=== PATIENT | female | born 1940 | race Caucasian/White ===

== ENCOUNTER 2018-12-29 16:51 | Inpatient (IN) | payer OTHER ==
[2018-12-29] MEDS: ONDANSETRON 4 MG INJ IV (17:52)
[2018-12-29] MEDS: morphine 4 MG/ML VIAL IV ×2 (17:52→20:02)
[2018-12-29 21:38] LABS: WHITE BLOOD COUNT 3.4 10^3/ul (4.8-10.8)
[2018-12-29 21:38] LABS: HEMATOCRIT 27.1 % (37.0-47.0); HEMOGLOBIN 8.7 g/dl (12.0-16.0); MEAN CORPUSCULAR HEMOGLOBIN 30.3 pg (29.0-33.0); MEAN CORPUSCULAR HGB CONC 32.1 g/dl (32.0-37.0); MEAN CORPUSCULAR VOLUME 94.4 fl (82.0-101.0); PLATELET COUNT 192 10^3/UL (140-415); RED BLOOD COUNT 2.87 10^6/ul (4.20-5.40); RED CELL DISTRIBUTION WIDTH 16.6 % (11.5-14.5)
[2018-12-29 21:42] LABS: ADD MAN DIFF? YES
[2018-12-29 21:43] LABS: ADD UMIC NO; UR ASCORBIC ACID NEGATIVE (NEGATIVE); UR BILIRUBIN (Dip) NEGATIVE (NEGATIVE); UR BLOOD (Dip) NEGATIVE (NEGATIVE); UR CLARITY CLEAR (CLEAR); UR COLOR YELLOW (YELLOW); UR GLUCOSE (Dip) NEGATIVE (NEGATIVE); UR KETONES (Dip) NEGATIVE (NEGATIVE); UR LEUKOCYTE ESTERASE (Dip) NEGATIVE Leu/ul (NEGATIVE); UR NITRITE (Dip) NEGATIVE (NEGATIVE); UR SPECIFIC GRAVITY (Dip) 1.013 (1.003-1.030); UR TOTAL PROTEIN (Dip) NEGATIVE (NEGATIVE); UR UROBILINOGEN (Dip) NEGATIVE (NEGATIVE)
[2018-12-29 21:55] LABS: ALANINE AMINOTRANSFERASE 26 IU/L (13-69); ALBUMIN 3.8 g/dl (3.3-4.9); ALKALINE PHOSPHATASE 81 IU/L (42-121); ANION GAP 9 (5-13); ASPARTATE AMINO TRANSFERASE 21 IU/L (15-46); BILIRUBIN,INDIRECT 0.2 mg/dl (0-1.1); BILIRUBIN,TOTAL 0.2 mg/dl (0.2-1.3); BLOOD UREA NITROGEN 28 mg/dl (7-20); CALCIUM 8.8 mg/dl (8.4-10.2); CARBON DIOXIDE 26 mmol/L (21-31); CHLORIDE 104 mmol/L (97-110); CREATININE 1.01 mg/dl (0.44-1.00); GLUCOSE 116 mg/dl (70-220); POTASSIUM 4.5 mmol/L (3.5-5.1); SODIUM 139 mmol/L (135-144); TOTAL PROTEIN 6.5 g/dl (6.1-8.1)
[2018-12-29 22:08] LABS: INR 1.04; PROTIME 13.7 Sec (11.9-14.9); PT RATIO 1.1
[2018-12-29 22:09] LABS: PARTIAL THROMBOPLASTIN TIME 26.3 Sec (23.0-35.0)
[2018-12-29 22:28] LABS: BAND NEUTROPHILS #M 0.2 10^3/ul (0.0-0.6); BAND NEUTROPHILS % (M) 7 % (0-4); BASOPHILS % (M) 1 % (0-2); EOSINOPHILS % (M) 2 % (0-7); GIANT THROMBO% (M) 2 % (0-0); LYMPHOCYTES % (M) 31 % (15-51); MONOCYTE #M 0.6 10^3/ul (0.3-0.9); MONOCYTES % (M) 20 % (0-11); PLATELET ESTIMATE NORMAL; SEG NEUT #M 1.3 10^3/ul (1.6-7.5); SEGMENTED NEUTROPHILS (M) % 39 % (39-77); SMUDGE%M 16 % (0-0)
[2018-12-30] MEDS: morphine 4 MG/ML VIAL IV ×2 (01:45→05:49)
[2018-12-30] MEDS ORDERED: ONDANSETRON 4 MG TAB PO (02:00)
[2018-12-30] MEDS ORDERED: NACL 0.9% 3 ML SYG IV (02:00)
[2018-12-30] MEDS ORDERED: DOCUSATE SODIUM 100 MG CAP PO (02:00)
[2018-12-30] MEDS: HYDROCODONE/APAP (5/325) TAB PO ×2 (02:04→02:11)
[2018-12-30] MEDS: D5W-0.45 NACL + KCL 20 MEQ 1,000 ML IV ×2 (04:20→15:08)
[2018-12-30] MEDS: FAMOTIDINE 20 MG TAB PO (04:23)
[2018-12-30] MEDS: HEPARIN 5,000 UNIT/1 ML VIAL SC ×3 (04:31→21:00)
[2018-12-30] MEDS ORDERED: LEVOTHYROXINE 112 MCG TAB (05:56)
[2018-12-30 06:22] LABS: ADD MAN DIFF? NO
[2018-12-30 06:25] LABS: ABNORMAL IP MESSAGE 1; BASOPHILS % 0.4 % (0.0-2.0); EOSINOPHILS # 0.3 10^3/ul (0.0-0.5); EOSINOPHILS % 9.7 % (0.0-7.0); HEMATOCRIT 27.9 % (37.0-47.0); HEMOGLOBIN 8.8 g/dl (12.0-16.0); LYMPHOCYTES # 0.7 10^3/ul (0.8-2.9); LYMPHOCYTES % 27.9 % (15.0-51.0); MEAN CORPUSCULAR HEMOGLOBIN 29.9 pg (29.0-33.0); MEAN CORPUSCULAR HGB CONC 31.5 g/dl (32.0-37.0); MEAN CORPUSCULAR VOLUME 94.9 fl (82.0-101.0); MEAN PLATELET VOLUME 11.3 fl (7.4-10.4); MONOCYTE # 0.8 10^3/ul (0.3-0.9); MONOCYTES % 29.8 % (0.0-11.0); NEUTROPHIL # 0.8 10^3/ul (1.6-7.5); NEUTROPHILS % 32.2 % (39.0-77.0); PLATELET COUNT 204 10^3/UL (140-415); RED BLOOD COUNT 2.94 10^6/ul (4.20-5.40); RED CELL DISTRIBUTION WIDTH 16.7 % (11.5-14.5)
[2018-12-30 06:25] LABS: WHITE BLOOD COUNT 2.6 10^3/ul (4.8-10.8)
[2018-12-30 06:40] LABS: POSITIVE DIFF @See below
[2018-12-30 06:50] LABS: CREATINE KINASE 466 IU/L (23-200)
[2018-12-30 07:03] LABS: ANION GAP 9 (5-13); BLOOD UREA NITROGEN 28 mg/dl (7-20); CALCIUM 8.9 mg/dl (8.4-10.2); CARBON DIOXIDE 28 mmol/L (21-31); CHLORIDE 103 mmol/L (97-110); CK INDEX 0.2; CK-MB 1.09 ng/ml (0.0-2.4); CREATININE 0.97 mg/dl (0.44-1.00); GLUCOSE 112 mg/dl (70-220); POTASSIUM 4.9 mmol/L (3.5-5.1); SODIUM 140 mmol/L (135-144); TROPONIN-I < 0.012 ng/ml (0.000-0.120)
[2018-12-30] MEDS: LEVOTHYROXINE 112 MCG TAB PO (07:03)
[2018-12-30 07:27] LABS: THYROID STIMULATING HORMONE 0.742 MIU/L (0.465-4.680)
[2018-12-30 07:50] LABS: HEMOGLOBIN A1C 5.2 % (0-5.9)
[2018-12-30] MEDS: CHOLECALCIFEROL 1,000 UNIT TAB PO (09:03)
[2018-12-30] MEDS: ASCORBIC ACID 500 MG TAB PO (09:03)
[2018-12-30] MEDS: AMLODIPINE 2.5 MG TAB PO (09:03)
[2018-12-30] MEDS: LOSARTAN 50 MG TAB PO (09:04)
[2018-12-30] MEDS: ISOSORBIDE MONONITRATE(SR)30 MG TAB PO (12:03)
[2018-12-30] MEDS: METOPROLOL (XL) 25 MG TAB PO (12:05)
[2018-12-30 12:08] LABS: CREATINE KINASE 430 IU/L (23-200)
[2018-12-30 12:20] LABS: CK INDEX 0.2; CK-MB 1.02 ng/ml (0.0-2.4); TROPONIN-I < 0.012 ng/ml (0.000-0.120)
[2018-12-30] MEDS ORDERED: LENALIDOMIDE 15 MG PO (21:00)
[2018-12-30] MEDS: ATORVASTATIN 10 MG TAB PO (21:41)
[2018-12-30] MEDS: LORATADINE/PSEUDOEPHED (SR) TAB PO (21:41)
[2018-12-31 00:07] LABS: IMMEDIATE SPIN CROSSMATCH 1 3
[2018-12-31] MEDS: morphine 2 MG INJ IV ×2 (02:12→11:19)
[2018-12-31] MEDS: D5W-0.45 NACL + KCL 20 MEQ 1,000 ML IV ×2 (04:15→12:48)
[2018-12-31 08:00] LABS: ADD MAN DIFF? NO
[2018-12-31 08:03] LABS: WHITE BLOOD COUNT 3.5 10^3/ul (4.8-10.8)
[2018-12-31 08:03] LABS: BASOPHILS % 0.9 % (0.0-2.0); EOSINOPHILS # 0.2 10^3/ul (0.0-0.5); EOSINOPHILS % 6.6 % (0.0-7.0); HEMATOCRIT 34.8 % (37.0-47.0); HEMOGLOBIN 11.2 g/dl (12.0-16.0); LYMPHOCYTES # 1.1 10^3/ul (0.8-2.9); LYMPHOCYTES % 30.3 % (15.0-51.0); MEAN CORPUSCULAR HEMOGLOBIN 30.2 pg (29.0-33.0); MEAN CORPUSCULAR HGB CONC 32.2 g/dl (32.0-37.0); MEAN CORPUSCULAR VOLUME 93.8 fl (82.0-101.0); MONOCYTE # 1.1 10^3/ul (0.3-0.9); MONOCYTES % 31.7 % (0.0-11.0); NEUTROPHIL # 1.1 10^3/ul (1.6-7.5); NEUTROPHILS % 30.2 % (39.0-77.0); PLATELET COUNT 193 10^3/UL (140-415); RED BLOOD COUNT 3.71 10^6/ul (4.20-5.40); RED CELL DISTRIBUTION WIDTH 16.1 % (11.5-14.5)
[2018-12-31] MEDS: LEVOTHYROXINE 112 MCG TAB PO (08:03)
[2018-12-31] MEDS: LOSARTAN 50 MG TAB PO (08:35)
[2018-12-31] MEDS: AMLODIPINE 2.5 MG TAB PO (08:36)
[2018-12-31] MEDS: LORATADINE/PSEUDOEPHED (SR) TAB PO ×2 (08:36→21:00)
[2018-12-31] MEDS: ISOSORBIDE MONONITRATE(SR)30 MG TAB PO (08:37)
[2018-12-31] MEDS: METOPROLOL (XL) 25 MG TAB PO (08:37)
[2018-12-31] MEDS: FAMOTIDINE 20 MG TAB PO (08:38)
[2018-12-31] MEDS: CHOLECALCIFEROL 1,000 UNIT TAB PO (08:38)
[2018-12-31] MEDS: ASCORBIC ACID 500 MG TAB PO (08:38)
[2018-12-31] MEDS: HEPARIN 5,000 UNIT/1 ML VIAL SC ×2 (08:51→21:00)
[2018-12-31] MEDS ORDERED: morphine SULFATE/PF (10 MG/10 ML) INJ (13:54)
[2018-12-31] MEDS ORDERED: FENTAnyl 50 MCG/ML VIAL (13:54)
[2018-12-31] MEDS ORDERED: PROPOFOL 20 ML (13:54)
[2018-12-31] MEDS ORDERED: LIDOCAINE 2% (SDV) 5 ML INJ (13:54)
[2018-12-31] MEDS ORDERED: EPHEDrine 50 MG INJ (14:49)
[2018-12-31] MEDS: POLYMYXIN/BACITRACIN 1L IRRIG (14:59)
[2018-12-31] MEDS ORDERED: SEVOFLURANE 15 MIN (15:00)
[2018-12-31] MEDS ORDERED: FAMOTIDINE 20 MG INJ (15:05)
[2018-12-31] MEDS ORDERED: ONDANSETRON 4 MG INJ (15:05)
[2018-12-31] MEDS ORDERED: DEXAMETHASONE 4 MG/ML 5 ML INJ (15:05)
[2018-12-31] MEDS ORDERED: CEFAZOLIN 1 GM INJ (15:08)
[2018-12-31] MEDS ORDERED: VASOPRESSIN 20 UNITS INJ (15:22)
[2018-12-31] MEDS ORDERED: ONDANSETRON 4 MG INJ IV ×2 (15:30→16:30)
[2018-12-31] MEDS ORDERED: DIPHENHYDRAMINE 50 MG INJ IV (15:30)
[2018-12-31] MEDS ORDERED: FENTAnyl 50 MCG/ML VIAL IV (15:30)
[2018-12-31] MEDS ORDERED: MEPERIDINE 25 MG INJ IV (15:30)
[2018-12-31] MEDS ORDERED: PROCHLORPERAZINE 10 MG INJ IV (15:30)
[2018-12-31] MEDS ORDERED: HYDROmorphONE 1 MG/5 ML IV SYRINGE IV ×3 (15:30→20:55)
[2018-12-31] MEDS: [UNRECOGNIZED DRUG - OTHER] XX (16:00)
[2018-12-31] MEDS ORDERED: NALOXONE (0.4 MG/ML) INJ IV (16:30)
[2018-12-31] MEDS ORDERED: KETOROLAC 15 MG INJ IV (16:30)
[2018-12-31] MEDS ORDERED: NALBUPHINE HCL (10 MG/1 ML) INJ IV (16:30)
[2018-12-31] MEDS ORDERED: HYDROmorphONE 0.5 MG/0.5 ML SYG IV ×2 (16:30)
[2018-12-31] MEDS: VANCOMYCIN 1 GM INJ (19:09)
[2018-12-31] MEDS ORDERED: MIDAZOLAM 1 MG/ML 2 ML INJ (19:44)
[2018-12-31] MEDS: MIDAZOLAM 1 MG/ML 2 ML INJ IV (19:54)
[2018-12-31] MEDS ORDERED: NACL 0.9% 3 ML SYG IV (20:00)
[2018-12-31] MEDS: DIPHENHYDRAMINE 50 MG INJ IV (20:03)
[2018-12-31] MEDS ORDERED: ALBUMIN HUMAN 5% 250 ML (20:39)
[2018-12-31] MEDS: ALBUMIN HUMAN 5% 250 ML IV (20:46)
[2018-12-31] MEDS: ATORVASTATIN 10 MG TAB PO (21:00)
[2018-12-31] MEDS: HYDROmorphONE 1 MG/5 ML IV SYRINGE IV (21:02)
[2018-12-31] MEDS: SOD CHLORIDE 0.9% 1,000 ML IV (22:30)
[2018-12-31] MEDS: LORAZEPAM 2 MG INJ IV (22:40)
[2018-12-31] MEDS: CEFAZOLIN 1 GM/50 ML (PMX) 50 ML IVPB (23:01)
[2019-01-01] MEDS: LORAZEPAM 2 MG INJ IV (03:10)
[2019-01-01] MEDS: CEFAZOLIN 1 GM/50 ML (PMX) 50 ML IVPB ×2 (04:47→12:09)
[2019-01-01] MEDS: SOD CHLORIDE 0.9% 1,000 ML IV ×2 (05:47→15:47)
[2019-01-01] MEDS: LEVOTHYROXINE 112 MCG TAB PO (06:16)
[2019-01-01 06:29] LABS: ABNORMAL IP MESSAGE 1; HEMATOCRIT 24.8 % (37.0-47.0); HEMOGLOBIN 7.8 g/dl (12.0-16.0); MEAN CORPUSCULAR HGB CONC 31.5 g/dl (32.0-37.0); MEAN CORPUSCULAR VOLUME 95.4 fl (82.0-101.0); MEAN PLATELET VOLUME 10.6 fl (7.4-10.4); PLATELET COUNT 185 10^3/UL (140-415); RED CELL DISTRIBUTION WIDTH 15.9 % (11.5-14.5)
[2019-01-01 06:35] LABS: ADD MAN DIFF? YES; POSITIVE DIFF @See below
[2019-01-01 06:43] LABS: ANION GAP 11 (5-13); BLOOD UREA NITROGEN 15 mg/dl (7-20); CALCIUM 7.7 mg/dl (8.4-10.2); CARBON DIOXIDE 21 mmol/L (21-31); CHLORIDE 106 mmol/L (97-110); CREATININE 0.91 mg/dl (0.44-1.00); GLUCOSE 174 mg/dl (70-220); POTASSIUM 4.3 mmol/L (3.5-5.1); SODIUM 138 mmol/L (135-144)
[2019-01-01 07:18] LABS: ANISOCYTOSIS 1+ (0-0); BAND NEUTROPHILS #M 1.3 10^3/ul (0.0-0.6); BAND NEUTROPHILS % (M) 33 % (0-4); BURR CELLS 1+ (0-0); GIANT THROMBO% (M) 1 % (0-0); LYMPHOCYTES #M 0.5 10^3/ul (0.8-2.9); LYMPHOCYTES % (M) 13 % (15-51); METAMYELOCYTES %M 2 % (0-0); MONOCYTE #M 0.6 10^3/ul (0.3-0.9); MONOCYTES % (M) 17 % (0-11); OVALOCYTES 1+ (0-0); PLATELET ESTIMATE NORMAL; POIKILOCYTOSIS 2+ (0-0); POLYCHROMASIA 1+ (0-0); SEG NEUT #M 1.5 10^3/ul (1.6-7.5); SEGMENTED NEUTROPHILS (M) % 35 % (39-77); SMUDGE%M 1 % (0-0)
[2019-01-01] MEDS: [UNRECOGNIZED DRUG - OTHER] XX ×3 (08:00→16:00)
[2019-01-01] MEDS: LORATADINE/PSEUDOEPHED (SR) TAB PO (08:49)
[2019-01-01] MEDS: CHOLECALCIFEROL 1,000 UNIT TAB PO (08:50)
[2019-01-01] MEDS: FAMOTIDINE 20 MG TAB PO (08:50)
[2019-01-01] MEDS: ISOSORBIDE MONONITRATE(SR)30 MG TAB PO (08:51)
[2019-01-01] MEDS: METOPROLOL (XL) 25 MG TAB PO (08:51)
[2019-01-01] MEDS: AMLODIPINE 2.5 MG TAB PO (08:52)
[2019-01-01] MEDS: ASCORBIC ACID 500 MG TAB PO (08:52)
[2019-01-01] MEDS: LOSARTAN 50 MG TAB PO (08:53)
[2019-01-01] MEDS ORDERED: ENOXAPARIN 40 MG/0.4 ML SYG SC (09:00)
[2019-01-01] MEDS ORDERED: HALOPERIDOL 5 MG INJ IV (09:00)
[2019-01-01] MEDS: HEPARIN 5,000 UNIT/1 ML VIAL SC (09:02)
[2019-01-01] MEDS ORDERED: morphine 4 MG/ML VIAL IV (14:27)
[2019-01-01] MEDS ORDERED: HYDROCODONE/APAP (5/325) TAB PO (14:27)
== END 2019-01-01 18:10 | DRG 481 ==
LOC: E/R 16:51 → 6WM 12-30 01:43
PROC: 0QS706Z Reposition Left Upper Femur with Intramedullary Internal Fixation Device, Open Approach (ICD-10-PCS; principal; 2018-12-31 13:30)
PROC: 30233N1 Transfusion of Nonautologous Red Blood Cells into Peripheral Vein, Percutaneous Approach (ICD-10-PCS; 2018-12-31 13:30)
DX: M84.452A Pathological fracture, left femur, initial encounter for fracture (principal); C90.00 Multiple myeloma not having achieved remission; E03.9 Hypothyroidism, unspecified; I10 Essential (primary) hypertension; I25.10 Atherosclerotic heart disease of native coronary artery without angina pectoris; E78.5 Hyperlipidemia, unspecified; D64.9 Anemia, unspecified; R41.0 Disorientation, unspecified; Z78.1 Physical restraint status
CPT/HCPCS: 36415; 36430; 71045; 73510; 73550; 73720; 80048; 80053; 81003; 82550; 82553; 83036; 83735; 84443; 84484; 85025; 85610; 85730; 86850; 86900; 86901; 86920; 87086; 93005; 96374; 96375; 96376; 97110; 97162; 97530; 99285-25